=== PATIENT | female | born 1960 | race Caucasian/White ===

== ENCOUNTER → 2018-09-19 10:12 | Outpatient (CLI) | payer OTHER, SELFPAY ==
[2018-09-19 16:05] LABS: Hematocrit 37.2 % (37-47); Hemoglobin 11.4 g/dl (12.0-15.0); Mean Corp Hgb Conc 30.6 g/gl (32-36); Mean Corpuscular Hgb 24.4 pg (27.0-32.0); Mean Corpuscular Volume 79.7 fL (81-99); Mean Platelet Vol. 10.9 fl (6.2-12.0); Platelet Count 285 K/mm3 (150-450); RBC Distribution Width CV 15.8 % (11.6-14.6); RBC Distribution Width SD 44.9 fl (35.1-43.9); Red Blood Count 4.67 M/mm3 (4.2-5.4); White Blood Count 6.1 K/mm3 (4.4-11.0)
[2018-09-19 16:06] LABS: Scan Indicated on CBC? Y/N NO
[2018-09-19 16:19] LABS: Follicle Stimulating Hormone 6.3 mIU/mL; Thyroid Stim Hormone (TSH) 1.46 uIU/mL (0.358-3.74)
[2018-09-21 08:19] LABS: HPV Reflexed? NOT INDICATED
== END ==
PROVIDERS: Visit Provider Obstetrics & Gynecology
DX: Z12.4 Encounter for screening for malignant neoplasm of cervix (principal); N92.4 Excessive bleeding in the premenopausal period
CPT/HCPCS: 83001; 84443; 85027; 88175; G0145

== ENCOUNTER → 2018-10-24 10:32 | Outpatient (CLI) | payer OTHER, SELFPAY ==
--- NOTE | 2018-10-24 10:35 | BI_ITS ---
MAMMOGRAPHY - BILATERAL SCREENING REASON FOR EXAM: Female, 58 years old. Routine annual screening examination. PERTINENT HISTORY: Non-contributory. TECHNIQUE: Digital bilateral breast gaby (3D mammographic acquisition) in the CC and MLO projections. 2-D mediolateral oblique (MLO) and craniocaudad (CC) views of both breasts were obtained. CAD: Full Field Digital Mammography with Computer Added Detection was performed. COMPARISON: Comparison is made with prior study May 29, 2017. FINDINGS: Breast Composition: The breasts are heterogeneously dense, which may obscure small masses. There are no dominant masses or suspicious calcifications. No other significant abnormalities are identified. There has been no significant change since the prior study. BI/SCREENING MAMM (CAD), BILAT IMPRESSION: Stable bilateral screening mammogram. Yearly follow-up mammogram recommended. (A) ASSESSMENT CATEGORY: BIRADS Category 1: Negative. A letter regarding these results will be sent to the patient by the facility within 30 days. Approximately 10% of breast cancers are not detected by mammography. A normal mammogram should not delay biopsy of a clinically suspicious abnormality. [id number] Electronically Signed: Zen Yanez, at 13:01 EDT , Service support ,
== END ==
PROVIDERS: Family Provider Physician Assistant; PCP Physician Assistant; Referring Provider Obstetrics & Gynecology; Visit Provider Obstetrics & Gynecology
DX: Z12.31 Encounter for screening mammogram for malignant neoplasm of breast (principal)
CPT/HCPCS: 77063; 77067

== ENCOUNTER 2019-08-10 10:53 | Emergency (ER) | payer OTHER, SELFPAY ==
[2019-08-10 10:54] VITALS: BP 181/99; PULSE 83; RESP 18; TEMP 36.6; O2SAT 99; BMI 24.0
--- NOTE | 2019-08-10 11:07 | EKG12_ITS ---
Test Reason : JAW PAIN Blood Pressure : / mmHG Vent. Rate : 074 BPM Atrial Rate : 074 BPM P-R Int : 172 ms QRS Dur : 076 ms QT Int : 396 ms P-R-T Axes : 045 005 012 degrees QTc Int : 439 ms Normal sinus rhythm with sinus arrhythmia Normal ECG Confirmed by MONICA SAINZ, ADRIAN ([id number]), photography editor SARA TORRES ([id number]) on 08/13/2019 9:55:28 AM Referred By: ALBINA Confirmed By:ADRIAN ANDERSON MD
[2019-08-10 11:08] VITALS: BP 207/98; PULSE 73; RESP 18; O2SAT 97
--- NOTE | 2019-08-10 11:16 | NURSING ---
NO OLD EKGS
[2019-08-10] MEDS: Aspirin 81 MG TAB.CHEW 324 MG PO (11:23)
--- NOTE | 2019-08-10 11:37 | RAD_ITS ---
STUDY: X-RAY CHEST REASON FOR EXAM: Female, 58 years old. SHOULDER, NECK AND JAW PAIN TECHNIQUE: PA and lateral views of the chest. COMPARISON: None. FINDINGS: The lungs are clear and expanded. There is no demonstrated pleural abnormality. Normal size heart. Normal mediastinum and jeanne. Normal visualized pulmonary arteries. Normal visualized aortic arch and descending thoracic aorta. There are diffuse degenerative changes of the visualized thoracic spine. Normal visualized ribs, clavicles, and shoulders. There is no demonstrated abnormality of the visualized soft tissue structures of the upper abdomen. RAD/Chest PA and Lateral IMPRESSION: No acute cardiopulmonary process. Electronically Signed: Kam Osuna MD (Brooks) at 12:20 EST , Service support ,
[2019-08-10 11:39] LABS: Absolute Lymphocyte Count 1.43 X10^3/uL (0.83-4.51); Basophil# 0.02 X10^3/uL; Basophil% 0.3 % (0-1); Eosinophil# 0.05 X10^3/uL; Eosinophils% 0.8 % (0-5); Hemoglobin 12.7 g/dL (12.0-15.0); Lymphocyte # 1.43 X10^3/ul (4.0); Lymphocyte % 24.2 % (19-41); Mean Corpuscular Hgb 24.8 pg (27.0-32.0); Mean Corpuscular Volume 80.1 fL (81-99); Mean Platelet Vol. 10.5 fl (6.2-12.0); Monocyte# 0.44 X10^3/uL; Monocyte% 7.4 % (0-10); NRBC Flagged by Analyzer 0 % (0-5); Neutrophil # 3.96 X10^3/uL (2.7-7.7); Platelet Count 282 K/mm3 (150-450); RBC Distribution Width CV 14.2 % (11.6-14.6); Red Blood Count 5.12 M/mm3 (4.2-5.4); White Blood Count 5.9 K/mm3 (4.4-11.0)
--- NOTE | 2019-08-10 11:43 | ED.VIS.CHEST ---
History of Present Illness Chief Complaint: Upper Extremity Injury Informant: Patient Narrative: Patient presenting secondary to chest pain and jaw pain. Patient reports that over the course of the last 2 months she has been dealing with a chest discomfort. She reports that it feels as if she is having aching in her bilateral clavicles. She reports that this was a continuous type discomfort and was not associated with any sort of injury and did get somewhat better with [id number] analgesics. Patient reports to me that since yesterday she has been having some issues with jaw pain. She reports that it is left-sided jaw pain and does not really have any sort of exacerbating factors but feels a little bit better when she stands up. It has been associated with shortness of breath lightheadedness. There is no exertional component to this. She does report that she has a mild amount of tooth sensitivity in the last 2 days to hot and cold. Patient reports that she has no medical history, she is a non-smoker. She denies any DVT or PE risk factors. She denies any fevers or any other infectious signs or symptoms. Review of systems otherwise negative. Past Medical History - Allergies and Home Meds Allergies/Adverse Reactions: Allergies No Known Allergies Allergy (Verified 08/10/19 10:56) Primary Care Physician: Faiza Boucher PA [Primary Care Provider] - Past Medical History: None Smoking Status: Never smoker Review of Systems All systems negative except as indicated General: Denies: Chills, Fever, Sweats Eyes: Denies: Visual changes - bilaterally, Diplopia ENT: Reports: - - Jaw pain Cardiovascular: Reports: Chest pain Respiratory: Denies: Dyspnea, Cough, Dyspnea on exertion Gastrointestinal: Denies: Abdominal pain, Nausea, Vomiting, Diarrhea, Melena, Hematochezia Genitourinary: Denies: Dysuria, Hematuria, Frequency Musculoskeletal: Denies: Back pain, Extremity Pain Skin: Denies: Rash, Wounds Neurological: Denies: Headache, Weakness, Numbness Physical Exam Vital Signs/Narrative: Vital Signs Temp Pulse Resp BP Pulse Ox 08/10/19 11:08 73 18 207/98 H 97 08/10/19 10:54 97.9 F 83 18 181/99 H 99 Inital Vital Signs reviewed: Yes General: Well nourished, Well developed, No Acute Distress Head: Normocephalic, Atraumatic Eyes: Perrl, EOMI ENT: Moist mucous membranes, No rhinorrhea Neck: Supple, Nontender Cardiovascular: Regular rate, Regular rhythm, No murmurs Respiratory: No distress, CTA bilaterally, Chest nontender Abdomen: Soft, Nontender, Nondistended, Normal bowel sounds Back: Nontender, Normal Inspection Extremities: Nontender, No edema Skin: Normal color, No rash Neurological: Alert, Oriented x3, Cranial nerves II-XII grossly intact, Normal Strength, Normal Sensation Psychological: Normal affect, Normal Mood Diagnostic/Tx/Re-eval - EKG Initial EKG Interpretation: - - Sinus rhythm at 74 with mild sinus arrhythmia. Isoelectric ST segments normal T waves normal NC and QTc intervals no evidence of acute ischemia or arrhythmia. - Medical Decision Making Patient presented secondary to clavicle pain and jaw pain. EKG found to be unremarkable. PA and lateral chest x-ray by my personal review as well as radiology is negative for acute pathology. CBC chemistry and troponin were found to be unremarkable. Patient was found to be persistently hypertensive in the emergency department with initial blood pressures in the 200s, and after about 2 hours she had blood pressures that were still in the 170s. Patient potentially has an element of symptomatic hypertension at this point. She has had this pain going on for 2 days now, and has a negative cardiac enzyme I do not believe that she requires admission as this is not likely a presentation of unstable angina at this point. Patient will be started on lisinopril first dose given in the emergency department. She was given Tylenol for treatment of pain. Patient was instructed she needs to follow-up with her primary care physician. ED Disposition - Plan for ED Patient: Disposition: Home or Assisted Living Diagnosis: Hypertension Instructions: High Blood Pressure (Hypertension) Prescriptions: Lisinopril 5 mg PO DAILY #30 tab Prescription Printed Referrals: Faiza Boucher PA [Primary Care Provider] - 3-5 Days
[2019-08-10 11:55] LABS: Anion Gap 5 (5-15); BUN 10 mg/dL (7-18); BUN/Creat Ratio 12.3 RATIO (10-20); Calcium,Total 8.9 mg/dL (8.5-10.1); Chloride 107 mmol/L (98-107); Creatinine, Serum 0.81 mg/dL (0.55-1.02); EST Glomerular Filtration Rate 77 mL/min (>60); Est Glom Filt Rate - Afr Amer 93 mL/min (>60); Estimated Creatinine Clearance 81.87 ml/min; Glucose 98 mg/dL (74-106); Potassium 3.8 mmol/L (3.5-5.1); Sodium Level 141 mmol/L (136-145)
[2019-08-10] MEDS: Acetaminophen 500 MG Tablet 1000 MG PO (13:10)
[2019-08-10] MEDS: Lisinopril 5 MG Tablet PO (13:10)
[2019-08-10 13:16] VITALS: BP 169/69; PULSE 76; RESP 22; O2SAT 99
== END 2019-08-10 13:17 | disposition home or self-care (01) ==
PROVIDERS: Emergency Provider Emergency Medicine; PCP Physician Assistant
DX: I10 Essential (primary) hypertension (principal)
CPT/HCPCS: 71046; 80048; 84484; 85025; 93005; 99285; A4216

== ENCOUNTER 2021-05-30 22:14 | Emergency (ER) | payer OTHER, SELFPAY ==
[2021-05-30 22:15] VITALS: BP 173/94; PULSE 76; RESP 14; TEMP 36.1; O2SAT 99; BMI 24.3
--- NOTE | 2021-05-30 22:28 | RAD_ITS ---
INDICATION: chest pain EXAMINATION/TECHNIQUE: X-RAY - XR Chest 2 Views COMPARISON: 08/10/2019. FINDINGS: The lungs are clear. The cardiomediastinal silhouette is unremarkable. No pleural effusion or pneumothorax. No acute osseous abnormalities. RAD/Chest PA and Lateral IMPRESSION: No acute radiographic abnormalities. Electronically Signed: Rito Triplett MD at 22:57 EST Tel , Service support ,
--- NOTE | 2021-05-30 22:28 | EKG12_ITS ---
Test Reason : CP Blood Pressure : / mmHG Vent. Rate : 075 BPM Atrial Rate : 075 BPM P-R Int : 172 ms QRS Dur : 078 ms QT Int : 388 ms P-R-T Axes : 049 014 023 degrees QTc Int : 433 ms Normal sinus rhythm Normal ECG Confirmed by GLORIA SAINZ, JENNIE ([id number]), school photograph editor ERIC CAMPOS ([id number]) on 06/01/2021 8:14:07 AM Referred By: CHANTE Confirmed By:JENNIE CASTRO MD
--- NOTE | 2021-05-30 22:31 | EDS_ITS ---
HPI History of Present Illness Chief Complaint: Chest Pain Informant: patient Narrative Narrative: Patient is a 6-year-old female with history of hypertension presenting with chest pain. Patient states about an hour prior to arrival she was sitting in bed watching TV when she suddenly had pain in her back that radiated around to her chest. It is in the center of her chest. The pain is been constant and sharp in nature. She describes it as a knife in her chest. No aggravating or alleviating factors. She denies shortness of breath but feels that she cannot take a full breath without discomfort. She denies any numbness or tingling her legs. She does have some nausea associated with the pain. Denies any sweating. Denies any radiation of pain to her neck or her arms. Notes that she had hypertension about a year ago and had a stress test at that time done at [facility]. She states it was normal but she was found to have what she believes to be mitral valve prolapse. Patient denies any swelling of her legs. She has a history of DVT or PE. No other complaints at this time. PFSH PFS Home Medications lisinopril 20 mg PO DAILY 05/30/21 [History Last Taken Unknown] omeprazole 20 mg PO DAILY 05/30/21 [History Last Taken Unknown] Allergy/AdvReac Type Severity Reaction Status Date / Time No Known Allergies Allergy Verified 05/30/21 22:21 Social History Smoking Status: Never smoker ROS ROS ED Constitutional Constitutional ED: Denies fatigue or weakness Eyes Eyes: Denies blurry vision Cardiovascular Cardiovascular: Reports chest pain; Denies palpitations Respiratory/Chest Respiratory/Chest: Denies dyspnea Gastrointestinal Gastrointestinal: Denies abdominal pain, nausea or vomiting Genitourinary Genitourinary ED: Denies decreased urination or dysuria Musculoskeletal Musculoskeletal: Reports back pain; Denies extremity pain or myalgias Integumentary Denies new lesions or rash Neurologic Neurologic: Denies paresthesias or weakness Psychiatric Psychiatric: Denies anxiety or depression Hematologic/Lymphatic Hematologic/Lymphatic: Denies easy bleeding or easy bruising EXAM Physical Exam Const Vital Signs: 05/30/21 22:15 05/30/21 22:18 05/30/21 22:33 Temperature 97 F L Temperature Source Oral Pulse Rate 76 Respiratory Rate 14 Respiratory Effort Normal Non-Labored Blood Pressure 173/94 H Blood Pressure Mean 120 Pulse Ox 99 99 Oxygen Delivery Method Room Air Room Air 05/30/21 22:52 05/30/21 23:01 05/30/21 23:11 Temperature Temperature Source Pulse Rate 58 L 72 66 Respiratory Rate 15 Respiratory Effort Blood Pressure 141/77 H 120/64 114/57 L Blood Pressure Mean 76 Pulse Ox 97 Oxygen Delivery Method Room Air 05/31/21 00:00 05/31/21 01:00 05/31/21 01:31 Temperature Temperature Source Pulse Rate 70 58 L 56 L Respiratory Rate 16 15 14 Respiratory Effort Blood Pressure 118/61 126/65 H 125/70 H Blood Pressure Mean 80 85 Pulse Ox 95 97 98 Oxygen Delivery Method Room Air Room Air Positive well nourished and well developed General Appearance ED: well developed HEENT Reports moist mucous membranes normocephalic Eyes PERRL and EOMs intact bilaterally Neck supple and no JVD Chest Wall inspection of chest normal Chest: tenderness Resp normal respiratory effort and clear to auscultation bilaterally Cardio regular rate and regular rhythm Rate: other Other Details: 2+ radial and DP pulses GI normal to inspection, nondistended, normoactive bowel sounds, non-tender and non-distended Back/Spine no CVA tenderness Back/Spine Narrative: Mild tenderness palpation of the lower thoracic spine. No single pinpoint area of tenderness. Extremity normal to inspection General Extremety ED: Negative for edema or tenderness General Extremity: Negative for edema Neuro oriented x3 Sensorium / Orientation: awake and alert Motor Exam: Negative for general weakness Psych mental status grossly normal Skin no rashes or lesions noted Heart Score History: Moderately Suspicious ECG: Normal Age: >45 - <65 years Risk Factors: 1 or 2 Risk Factors Troponin: </= Normal Limit Score: 3 MDM MDM MDM Narrative Medical decision making narrative: Patient evaluated for back pain rating to her chest. Patient initially is hypertensive but otherwise well-appearing. Her chest pain is reproducible with direct palpation. EKG does not show any acute abnormalities and is normal appearing. High since he troponin is normal x2. Her D-dimer is 0.39. Patient does not have any risk factors for PE. Chest x-ray does not show any acute process or acute bony abnormality to explain her pain. Leopoldo henry is given aspirin in the emergency room. She is given nitro trial with no improvement of her pain. I then gave her a dose of Toradol which does seem to improve her pain slightly. Patient's pain cause is not clear however I do not think this is ACS or more serious cause. I think she stable for outpatient follow-up. Patient is agreeable with this. She does request referral to Dr. Hardy if she would like to follow-up with cardiology. This is given on her discharge instructions. Patient is counseled on signs and symptoms requiring return to the emergency room. Patient verbalizes agreement and understand this plan. Patient discharged home in stable and improved condition. Lab Data Attestation: I reviewed the patient's lab results. Labs: Laboratory Results - last 24 hr 05/30/21 05/30/21 05/30/21 22:30 22:30 22:30 WBC 7.8 RBC 4.43 Hgb 12.7 Hct 38.8 MCV 87.6 MCH 28.7 MCHC 32.7 RDW Std Deviation 41.3 RDW Coeff of Kelli 12.9 Plt Count 230 MPV 10.1 Immature Gran % (Auto) 0.300 Neut % (Auto) 62.2 Lymph % (Auto) 27.6 Troup % (Auto) 7.7 Eos % (Auto) 1.9 Baso % (Auto) 0.3 Absolute Neuts (auto) 4.9 Absolute Lymphs (auto) 2.15 Nucleated RBC % 0 D-Dimer Quant (PE/DVT) 0.39 Sodium 141 Potassium 3.5 Chloride 109 H Carbon Dioxide 27.0 Anion Gap 5 BUN 19 H Creatinine 0.83 Estim Creat Clear Calc 77.95 Est GFR (MDRD) Af Amer 91 Est GFR (MDRD) Non-Af 75 BUN/Creatinine Ratio 23.0 H Glucose 117 H Calcium 8.7 Total Bilirubin 0.30 AST 29 ALT 44 Alkaline Phosphatase 83 Troponin I High Sens 7 Total Protein 6.8 Albumin 3.4 Globulin 3.4 Albumin/Globulin Ratio 1.0 Lipase 137 05/31/21 00:38 WBC RBC Hgb Hct MCV MCH MCHC RDW Std Deviation RDW Coeff of Kelli Plt Count MPV Immature Gran % (Auto) Neut % (Auto) Lymph % (Auto) Troup % (Auto) Eos % (Auto) Baso % (Auto) Absolute Neuts (auto) Absolute Lymphs (auto) Nucleated RBC % D-Dimer Quant (PE/DVT) Sodium Potassium Chloride Carbon Dioxide Anion Gap BUN Creatinine Estim Creat Clear Calc Est GFR (MDRD) Af Amer Est GFR (MDRD) Non-Af BUN/Creatinine Ratio Glucose Calcium Total Bilirubin AST ALT Alkaline Phosphatase Troponin I High Sens 6 Total Protein Albumin Globulin Albumin/Globulin Ratio Lipase Radiography Diagnostic Testing: Clinical Impression(s) from Imaging Studies Chest X-Ray 05/30/21 22:28 IMPRESSION: No acute radiographic abnormalities. Electronically Signed: Rito Triplett MD at 22:57 EST Tel , Service support , Rhythm Strip Rhythm Strip: Sinus Rhythm Rate: 75 EKG Initial EKG: Attestation: I personally reviewed and interpreted this EKG as follows: Interpretation: Sinus Rhythm Comments: Normal sinus rhythm at a rate of 75 Normal axis Normal intervals Normal ST segments Discharge Plan Triage Chief Complaint: Chest Pain ED Provider: Tatiana Pike Dx/Rx/DC Orders Clinical Impression: Chest pain, Back pain, Hypertension Instructions: ED Chest Pain, Uncertain Cause Prescriptions: No Action lisinopril 20 mg tablet 20 mg PO DAILY RF: 0 omeprazole 20 mg capsule,delayed release(DR/EC) 20 mg PO DAILY RF: 0 Primary Care Provider: Faiza Boucher Referrals: Mark Hardy MD [STAFF PHYSICIAN] - As Needed Faiza Boucher PA [Primary Care Provider] - Disposition Disposition: Home, Self Care Discharge Date/Time: 05/31/21 01:31
[2021-05-30 22:33] VITALS: O2SAT 99
[2021-05-30 22:40] LABS: Absolute Lymphocyte Count 2.15 X10^3/uL (0.83-4.51); Absolute Neutrophil Count 4.9 X10^3/uL (2.0-7.7); Basophil# 0.02 X10^3/uL; Basophil% 0.3 % (0-1); Eosinophil# 0.15 X10^3/uL; Eosinophils% 1.9 % (0-5); Hematocrit 38.8 % (37-47); Hemoglobin 12.7 g/dL (12.0-15.0); Lymphocyte # 2.15 X10^3/ul (0.83-4.51); Lymphocyte % 27.6 % (19-41); Mean Corp Hgb Conc 32.7 g/dL (32-36); Mean Corpuscular Hgb 28.7 pg (27.0-32.0); Mean Corpuscular Volume 87.6 fL (81-99); Mean Platelet Vol. 10.1 fl (6.2-12.0); Monocyte% 7.7 % (0-10); NRBC Flagged by Analyzer 0 % (0-5); Neutrophil # 4.85 X10^3/uL (2.7-7.7); Neutrophil % 62.2 % (47-70); Platelet Count 230 K/mm3 (150-450); RBC Distribution Width CV 12.9 % (11.6-14.6); RBC Distribution Width SD 41.3 fl (35.1-43.9); Red Blood Count 4.43 M/mm3 (4.2-5.4); White Blood Count 7.8 K/mm3 (4.4-11.0)
[2021-05-30 22:52] VITALS: BP 141/77; PULSE 58
[2021-05-30] MEDS: Nitroglycerin SL (ED/IMG/CATH) 0.4 MG TABLET SL ×2 (22:52→23:01)
[2021-05-30 22:55] LABS: D-Dimer Quantitative (DVT/PE) 0.39 FEU/ug/m (0.27-0.49)
[2021-05-30 23:01] VITALS: BP 120/64; PULSE 72
[2021-05-30 23:04] LABS: AST(SGOT) 29 U/L (15-37); Alanine Aminotransfer ALT/SGPT 44 U/L (13-56); Albumin, Serum 3.4 g/dL (3.2-5.0); Alkaline Phosphatase 83 U/L (45-117); Anion Gap 5 (5-15); BUN 19 mg/dL (7-18); Calcium,Total 8.7 mg/dL (8.5-10.1); Chloride 109 mmol/L (98-107); Creatinine, Serum 0.83 mg/dL (0.55-1.02); EST Glomerular Filtration Rate 75 mL/min (>60); Est Glom Filt Rate - Afr Amer 91 mL/min (>60); Estimated Creatinine Clearance 77.95 ml/min; Globulin 3.4 g/dL (2.2-4.2); Glucose 117 mg/dL (74-106); Lipase 137 U/L (73-393); Potassium 3.5 mmol/L (3.5-5.1); Protein, Total 6.8 g/dL (6.4-8.2); Sodium Level 141 mmol/L (136-145); Troponin-I HS 7 pg/mL (3.0-54.0)
[2021-05-30 23:11] VITALS: BP 114/57; PULSE 66; RESP 15; O2SAT 97
[2021-05-30] MEDS: Ketorolac 15 MG/ML Vial IV (23:31)
[2021-05-31] VITALS: BP 118/61; PULSE 70; RESP 16; O2SAT 95
[2021-05-31 01:00] VITALS: BP 126/65; PULSE 58; RESP 15; O2SAT 97
[2021-05-31 01:10] LABS: Troponin-I HS 6 pg/mL (3.0-54.0)
[2021-05-31 01:31] VITALS: BP 125/70; PULSE 56; RESP 14; O2SAT 98
== END 2021-05-31 01:31 | disposition home or self-care (01) ==
PROVIDERS: Emergency Provider Emergency Medicine; PCP Physician Assistant
DX: R07.9 Chest pain, unspecified (principal); M54.9 Dorsalgia, unspecified; R11.0 Nausea; I10 Essential (primary) hypertension; Z79.899 Other long term (current) drug therapy
CPT/HCPCS: 71046; 80053; 83690; 84484; 85025; 85379; 93005; 96374; 99285; A4216

== ENCOUNTER 2022-04-26 05:52 | Day surgery (SDC) | payer SELFPAY ==
[2022-04-26] VITALS (10 sets, daily range): BP systolic 113–143; BP diastolic 68–98; PULSE 60–83; RESP 16–18; TEMP 36.5–36.9; O2SAT 95–100; BMI 24.5
--- NOTE | 2022-04-26 | GASB_PTH ---
PATIENT: OLEG ROACH LOC: [facility] U#:[id number] AGE/SX: 61/F ROOM: RE04/26/[address]: Dr. Jefferson Smith MD : [id number] BED: DIS: 04/26/2022 SPEC #: [id number] RECD: 04/26/22 11:19 STATUS: ANTONY GUNJAN #: [id number] MEERA: 04/26/22 00:[address]: Jefferson Smith DEPT: SURGICAL PATHOLOGY RECD BY: James Tam ENTERED: 04/26/22 11:19 SP TYPE: Gastric Bx OTHR DR: MARKO Watkins Tissues: A - Gastric mucous membrane B - Esophageal mucous membrane C - Esophageal mucous membrane Procedures: Special Stain Group II Surgery Specimen Level IV Alcian Blue/PAS (control) HEADER OPERATION: EGD (MOD), biopsy PRE-OP DIAGNOSIS: GERD TISSUE SUBMITTED: A ? Antrum biopsy for histo and H. pylori, B ? Distal esophagus biopsy, C ? Mid esophagus biopsy MICROSCOPIC DIAGNOSIS A. Antrum, biopsy: A minute fragment of gastric epithelium, no pathologic diagnosis. See comment. B. Distal esophagus, biopsy: Fragments of gastroesophageal mucosa with mild chronic inflammation. Intestinal metaplasia (goblet cell metaplasia) not identified. See comment. C. Mid esophagus, biopsy: Fragments of benign squamous epithelium. SJ:rg 04/27/2022 COMMENT A. The results of immunohistochemistry for Helicobacter pylori will be reported separately ([id number]). B. Alcian blue/PAS stain with matched control is used in the evaluation of the specimen. MICROSCOPIC DESCRIPTION Slides are reviewed. GROSS DESCRIPTION A - Received in fixative is one container labeled with the patient's name and designated antrum biopsy. The specimen consists of one irregular fragment of light tomas soft tissue that measures 0.2 x 0.1 x 0.1 cm. The specimen is totally submitted in one cassette. B - Received in fixative is one container labeled with the patient's name and designated distal esophagus biopsy. The specimen consists of multiple irregular fragments of light tomas soft tissue that in aggregate measure 1 x 0.3 x 0.1 cm. The specimen is totally submitted in one cassette. C - Received in fixative is one container labeled with the patient's name and designated mid esophagus biopsy. The specimen consists of multiple irregular fragments of light tomas soft tissue that in aggregate measure 0.6 x 0.5 x 0.1 cm. The specimen is totally submitted in one cassette. / SJ:rg 04/26/2022 TC:3 CPT: 35573 x3, 42848
--- NOTE | 2022-04-26 06:12 | HP.PCM_ITS ---
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 Jefferson Smith MD) Hypertension Family History?(Updated 04/12/22 @ 13:25 by Marilou Emerson) Brother Cancer ?? ? Prostate cancerSister Cancer ?? ? brain cancer CVA (cerebral vascular accident)Father Heart disease Myocardial infarctionMother Diabetes Heart disease Social History? Smoking Status:? Never smoker HPI HPI HPI: 61-year-old female who is being referred for management of hiatal hernia noted on CT scan and gastroesophageal reflux disease with chest pain.? The patient is being referred by Faiza Boucher PA-C and a written copy of my surgical consult and recommendations will be returned to her.? She is noting chest pressure almost like a burp or belch.? She has been taking omeprazole.? I have assisted her previously ? April of 2017 with a normal screening colonoscopy.? At [facility] on September 07, [address] she had a chest CT scan with indication pulmonary nodule.? Pulmonary nodule left lower lobe of the lung was unchanged.? Small hiatal hernia was noted. The patient has been on omeprazole 20 mg daily but that failed to respond.? She has been having retrosternal discomfort almost like a burp and belch and pain.? She has had years worth of gastric reflux disease.? She had her omeprazole increased to 40 mg daily and that does seem to accommodate all of her symptoms.? She has never had any gallbladder disease.? She does not have any particular food intolerances.? If she stops her omeprazole however she immediately gets recurrent symptoms.? No bright red blood per rectum or melena. She will be seeing cardiology in the future even though a year ago she had a normal stress test.? Her father also apparently had multiple normal stress test and then of a myocardial infarction.? The patient may require a future invasive cardiac investigation. ROS General General: No weight change, appetite, fatigue, colon cancer, breast cancer or weakness HEENT HEENT: No difficulty swallowing, eye injury, eye surgery, swollen glands or hoarseness Endo Endocrine: No thyroid disease, diabetes mellitus, thyroid cancer, Hair loss, heat intolerance or cold intolerance Skin Skin: No rash or changing moles Breast Breast: No left breast lump, right breast lump, nipple discharge, breast pain, abnormal mammogram, abnormal US or breast enlargement Musc Musculoskeletal: No back problems, arthritis, rheumatoid arthritis, gout or joint pain Cardio Cardiovascular: Yes high blood pressure; No murmur, pacemaker, heart disease, atrial fibrillation, heart attack, heart stent, palpitations, shortness of breat with exertion or chest pain Psych Psychiatric: No depression, anxiety or hearing voices Resp Respiratory: No shortness of breath, No sleep apnea, No cough, No COPD, No asthma, No emphysema and No wheezing Gastro Gastrointestinal: No abdominal pain, No nausea or vomiting, No diarrhea, No constipation, No blood in stool, Yes acid reflux, No hemorrhoids, No ulcers, No gallbladder problem and No black,tarry stools Omar Hematologic: No blood thinners, No blood disorders, No bleeding, No anemia and No blood clots Neuro Neurologic: No system reviewed and no additional complaints, except as documented, No as per HPI, No abnormal gait, No abnormal hearing, No abnormal movements, No abnormal speech, No behavioral changes, No burning sensations, No confusion, No convulsions, No disequilibrium, No dizziness, No localized weakness, No frequent falls, No headache(s), No lack of coordination, No loss of vision, No memory loss, No numbness, No other visual disturbances, No radicular pain, No restless legs, No sensory deficit, No syncope, No tingling, No tremor(s), No weakness and No other Exam Const General: cooperative Nutritional Appearance: average body habitus Orientation: alert and awake [facility] Head: normal to inspection Eyes General: appearance normal, both eyes and all related structures Neck Neck: normal visual inspection Chest Chest palpation & inspection: normal inspection of the chest Resp Effort & Inspection: normal respiratory effort Auscultation: clear to auscultation bilaterally Cardio Rate: regular rate Rhythm: regular rhythm GI Inspection: normal to inspection Palpation: soft and no hepatosplenomegaly Musc Cervical Spine: normal cervical lordosis Skin Other: Small abrasion right patella area.? Clean. Neuro General: patient alert, patient awake and patient oriented x3 Extrem General: no calf tenderness Psych Appearance: grossly normal Assessment and Plan Assessment and Plan (1) GERD (gastroesophageal reflux disease): ?Status:?Acute ?Plan: I recommend to the patient esophagogastroduodenoscopy with possible biopsy or polypectomy as indicated.? I anticipate IV sedation.? The patient is requesting a self-pay package and we will assist with directing her.? The patient's had an opportunity to ask and have questions answered.? We will schedule procedure at her discretion. Copy: GURU Watkins M.D., F.A.C.S. I have re-examined the patient. There are no clinical changes since date of exam. Jefferson Smith M.D., F.A.C.S. Assessment & Plan Assessment/Plan (1) GERD (gastroesophageal reflux disease): PLAN: Plan Esophagogastroduodenoscopy with biopsy or polypectomy as indicated Jefferson Smith M.D., F.A.C.S.
[2022-04-26] MEDS: Lactated Ringers 1,000 ML 15 ML IV (06:31)
[2022-04-26] MEDS: Midazolam 5 MG/ML Syringe (07:00)
--- NOTE | 2022-04-26 07:00 | IMM_PTH ---
PATIENT: OLEG ROACH LOC: EN U#:[id number] AGE/SX: 61/F ROOM: RE04/26/[address]: Dr. Jefferson Smith MD : 1960 BED: DIS: 04/26/2022 SPEC #: [id number] RECD: 04/26/22 13:48 STATUS: ANTONY REQ #: [id number] MEERA: 04/26/22 07:[address]: Jefferson Smith DEPT: IMMUNOHISTOCHEMISTRY RECD BY: Lexii Howard ENTERED: 04/26/22 13:48 SP TYPE: IMMUNO OTHR DR: MARKO Watkins Tissues: A - Stomach, NOS Procedures: H Pylori (initial) PHYSICIAN & INSTITUTION [place] [address] SPECIMEN INFORMATION: Tissue Source: A ? Antrum biopsy Clinical Info: GERD Specimen Number: [id number] CPT code: 40419 METHODOLOGY: Deparaffinized sections of prefer/formalin-fixed tissue or PAP/DQ stained slides are incubated with monoclonal/polyclonal antibodies/oligonucleotide probes. Localization is made via biotin free immunoperoxidase method. Appropriate controls are performed and reacted as expected. Results on target cell population are indicated in the following table: RESULTS: ANTIBODY / CLONE RESULT Block A H Pylori (polyclonal) negative These tests were developed and their performance characteristics determined by [facility]. They may not have been cleared or approved by the [place]. Food and Drug Administration. The FDA has determined that such clearance or approval is not necessary. The above immunohistochemical/dualISH markers are ordered and reviewed by the Pathologist. INTERPRETATION: A. Antrum, biopsy: Negative for Helicobacter pylori organisms. ELIZABETH:raeann 04/27/2022
--- NOTE | 2022-04-26 07:17 | OP.EGD_ITS ---
Patient Name: Arielle Conway Procedure Date: 04/26/2022 6:51 AM Date of : 1960 Age: 61 Procedure: Upper GI endoscopy Indications: Suspected gastro-esophageal reflux disease Providers: Jefferson Smith MD Medicines: Midazolam 3.5 mg IV, Meperidine 100 mg IV Complications: No immediate complications. Procedure: Pre-Anesthesia Assessment: - Prior to the procedure, a History and Physical was performed, and patient medications and allergies were reviewed. The patient's tolerance of previous anesthesia was also reviewed. The risks and benefits of the procedure and the sedation options and risks were discussed with the patient. All questions were answered, and informed consent was obtained. Prior Anticoagulants: The patient has taken no previous anticoagulant or antiplatelet agents. ASA Grade Assessment: II - A patient with mild systemic disease. After reviewing the risks and benefits, the patient was deemed in satisfactory condition to undergo the procedure. After obtaining informed consent, the endoscope was passed under direct vision. Throughout the procedure, the patient's blood pressure, pulse, and oxygen saturations were monitored continuously. The gastroscope was introduced through the mouth, and advanced to the second part of duodenum. The upper GI endoscopy was accomplished without difficulty. The patient tolerated the procedure well. Moderate Sedation: Moderate (conscious) sedation was personally administered by the endoscopist. The following parameters were monitored: oxygen saturation, heart rate, blood pressure, and response to care. Total physician intraservice time was 15 minutes. Scope In: 7:00:36 AM Scope Out: 7:10:59 AM Total Procedure Duration Time 0 hours 10 minutes 23 seconds Findings: LA Grade A (one or more mucosal breaks less than 5 mm, not extending between tops of 2 mucosal folds) esophagitis with no bleeding was found 37 cm from the incisors. Biopsies were taken with a cold forceps for histology. The middle third of the esophagus was normal. Biopsies were taken with a cold forceps for histology. A 3 cm hiatal hernia was present. Diffuse mildly erythematous mucosa without bleeding was found in the gastric antrum. Biopsies were taken with a cold forceps for histology. The examined duodenum was normal. Impression: - LA Grade A reflux esophagitis. Biopsied. - Normal middle third of esophagus. Biopsied. - 3 cm hiatal hernia. - Erythematous mucosa in the antrum. Biopsied. - Normal examined duodenum. Recommendation: - Discharge patient to home. - Resume previous diet. - Continue present medications. - Telephone my office for pathology results in 1 week. If symptoms persist you might be a good candidate for surgical reflux procedure. Please notify me as to how you would want to proceed. Procedure Code(s): --- Professional --- 52475, Esophagogastroduodenoscopy, flexible, transoral; with biopsy, single or multiple 37941, 59, Moderate sedation services provided by the same physician or other qualified health director critical care performing the diagnostic or therapeutic service that the sedation supports, requiring the presence of an independent trained observer to assist in the monitoring of the patient's level of consciousness and physiological status; initial 15 minutes of intraservice time, patient age 5 years or older Diagnosis Code(s): --- Professional --- K21.0, Gastro-esophageal reflux disease with esophagitis K44.9, Diaphragmatic hernia without obstruction or gangrene K31.89, Other diseases of stomach and duodenum CPT copyright 2017 [employer]. All rights reserved. The codes documented in this report are preliminary and upon information technology auditor review may be revised to meet current compliance requirements. Jefferson Smith MD 04/26/2022 7:16:27 AM This report has been signed electronically. Number of Addenda: 0 Note Initiated On: 04/26/2022 6:51 AM
--- NOTE | 2022-04-26 07:17 | OP.CCLET_ITS ---
04/26/2022 Faiza Boucher Re : Upper GI endoscopy procedure for Arielle Boucher This procedure was performed on Tuesday, April 26, 2022. My impressions and recommendations are as follows: Impressions : - LA Grade A reflux esophagitis. Biopsied. - Normal middle third of esophagus. Biopsied. - 3 cm hiatal hernia. - Erythematous mucosa in the antrum. Biopsied. - Normal examined duodenum. Recommendations : - Discharge patient to home. - Resume previous diet. - Continue present medications. - Telephone my office for pathology results in 1 week. If symptoms persist you might be a good candidate for surgical reflux procedure. Please notify me as to how you would want to proceed. My findings are described in the full procedure note, which is enclosed. If I can be of further assistance, please feel free to contact me at Doctor phone number(s): Work: . Sincerely, Jefferson Smith MD 04/26/2022 7:16:27 AM This report has been signed electronically.
== END 2022-04-26 08:20 | disposition home or self-care (01) ==
LOC: EN 05:56 → AC 05:58
PROVIDERS: PCP Physician Assistant; Referring Provider Physician Assistant; Visit Provider Surgery
PROC: (CPT 43239; principal; 2022-04-26 06:55)
DX: K21.00 Gastro-esophageal reflux disease with esophagitis, without bleeding (principal); K44.9 Diaphragmatic hernia without obstruction or gangrene; K31.89 Other diseases of stomach and duodenum; I10 Essential (primary) hypertension; Z79.899 Other long term (current) drug therapy
CPT/HCPCS: 43239; 88305; 88313; 88342; J7120

== ENCOUNTER 2022-06-13 14:07 | Outpatient (CLI) | payer OTHER, SELFPAY ==
[2022-06-23 20:48] LABS: HPV APTIMA, High Risk Negative (Negative)
== END 2022-06-13 23:59 | disposition home or self-care (01) ==
LOC: LABSPEC 14:21
PROVIDERS: PCP Physician Assistant; Visit Provider Student in an Organized Health Care Education/Training Program
DX: Z12.4 Encounter for screening for malignant neoplasm of cervix (principal)
CPT/HCPCS: 87624; 88175; G0145

== ENCOUNTER → 2023-06-23 | Outpatient (CLI) | payer SELFPAY ==
--- NOTE | 2023-06-23 10:03 | BI_ITS ---
MAMMOGRAPHY - BILATERAL SCREENING REASON FOR EXAM: Female, 62 years old. Routine annual screening examination. PERTINENT HISTORY: Non-contributory. TECHNIQUE: Digital bilateral breast francisca (3D mammographic acquisition) in the CC and MLO projections. 2-D mediolateral oblique (MLO) and craniocaudad (CC) views of both breasts were obtained. CAD: Full Field Digital Mammography with Computer Added Detection was performed. COMPARISON: Comparison is made with prior study October 24, 2018 and May 29, 2017. FINDINGS: Breast Composition: The breasts are heterogeneously dense, which may obscure small masses. There are no dominant masses or suspicious calcifications. No other significant abnormalities are identified. There has been no significant change since the prior study. BI/SCRN MAMM (CAD)W/FRANCISCA BILAT IMPRESSION: Stable bilateral screening mammogram. Yearly follow-up mammogram recommended. (A) ASSESSMENT CATEGORY: BIRADS Category 1: Negative. A letter regarding these results will be sent to the patient by the facility within 30 days. Approximately 10% of breast cancers are not detected by mammography. A normal mammogram should not delay biopsy of a clinically suspicious abnormality. [id number] Electronically Signed: Zen Yanez MD at 11:06 EST ,
== END | disposition home or self-care (01) ==
PROVIDERS: PCP Physician Assistant; Referring Provider Physician Assistant; Visit Provider Physician Assistant
DX: Z12.31 Encounter for screening mammogram for malignant neoplasm of breast (principal)
CPT/HCPCS: 77063; 77067